=== PATIENT | female | born 1940 | race Caucasian/White ===

== ENCOUNTER 2017-04-07 21:00 | Observation (INO) | payer MEDICARE, OTHER ==
[2017-04-07 21:39] LABS: #Basophils 0.1 thou/uL (0.0-0.2); #Eosinphils 0.2 thou/uL (0.0-0.7); #Lymphocytes 2.2 thou/uL (1.20-3.40); #Monocytes 0.6 thou/uL (0.11-0.59); #Neutrophils 5.9 thou/uL (1.40-6.50); %Basophils 1.1 % (0.0-1.0); %Eosinophils 2.3 % (0.0-10.0); %Lymphocytes 24.3 % (21.0-51.0); %Monocytes 6.6 % (0.0-10.0); %Neutrophils 65.7 % (42.0-75.0); Hemoglobin 14.8 g/dL (12.0-16.0); Mean Corpuscular HGB CONC 33.3 g/dL (32.0-36.0); Mean Corpuscular Volume 96.1 fl (81.0-99.0); Mean Platelet Volume 6.9 fL (7.4-10.4); Platelet Count 278 thou/uL (130-400); Red Blood Cell (RBC) Count 4.62 mill/uL (4.20-5.40)
[2017-04-07 21:45] LABS: PTT 31.6 SEC (22.9-36.1); Prothrombin Time 13.3 SEC (12.0-14.7)
[2017-04-07] MEDS ORDERED: Nitroglycerin 2% Ointment 1 INCH/1 GM Packet ONE (21:48)
--- NOTE | 2017-04-07 21:52 | RAD ---
PORTABLE CHEST: 04/07/17 COMPARISON: 01/15/14 study HISTORY: Chest pain. Heart size is within normal limits. Postop sternotomy changes in a pacemaker are present. The lungs a re clear of infiltrates. IMPRESSION: No active intrathoracic disease. POS: [facility]
[2017-04-07 21:59] LABS: ALT (SGPT) 20 U/L (8-55); AST (SGOT) 24 U/L (5-34); Albumin 4.4 g/dL (3.4-4.8); Alkaline Phosphatase 44 U/L (40-150); Anion Gap 14 mmol/L (10-20); BUN (Urea Nitrogen) 26 mg/dL (9.8-20.1); Bilirubin, Total 0.4 mg/dL (0.2-1.2); CK (CPK) 97 U/L (29-168); Calc. Creatinine Clearance 0 mL/min (70-130); Carbon Dioxide 27 mmol/L (23-31); Chloride 102 mmol/L (98-107); Estimated GFR-MDRD 37; Globulin 3.9 g/dL (2.4-3.5); Glucose 108 mg/dL (83-110); Lipase 70 U/L (8-78); Protein, Total 8.3 g/dL (6.0-8.3); Sodium 139 mmol/L (136-145)
[2017-04-07 22:04] LABS: CKMB 1.9 ng/mL (0-6.6)
[2017-04-07] MEDS ORDERED: cloNIDine 0.1 MG TAB ONE (22:33)
[2017-04-08] MEDS ORDERED: Ondansetron ODT 4 MG TAB SL PRN (00:17)
[2017-04-08] MEDS ORDERED: Ondansetron HCl/PF 4 MG/2 ML Vial IVP PRN ×2 (00:17→01:10)
[2017-04-08] MEDS ORDERED: cloNIDine 0.2 MG TAB PO PRN (00:17)
[2017-04-08] MEDS ORDERED: Sodium Chloride 0.9% 1,000 ML IV SCH (00:17)
[2017-04-08] MEDS ORDERED: cloNIDine 0.1 MG TAB PO PRN ×2 (01:09→01:43)
[2017-04-08] MEDS ORDERED: ALPRAZolam 0.25 MG TAB PO PRN (01:09)
[2017-04-08] MEDS ORDERED: Loratadine 10 MG TAB PO PRN (01:10)
[2017-04-08] MEDS ORDERED: Bisacodyl 5 MG TAB PO PRN (01:10)
[2017-04-08] MEDS ORDERED: traMADol HCl 50 MG TAB PO PRN (01:10)
[2017-04-08] MEDS ORDERED: HYDROcodone/Acetaminophen 5/325 mg Tablet PO PRN (01:10)
[2017-04-08] MEDS ORDERED: Acetaminophen 325 MG TAB PO PRN ×2 (01:10)
[2017-04-08] MEDS ORDERED: Benzonatate 100 MG CAP PO PRN (01:10)
[2017-04-08] MEDS ORDERED: Nitroglycerin 0.4 MG TAB (25 Tab Bottle) SL PRN (01:10)
[2017-04-08] MEDS ORDERED: Calcium Carbonate 500 MG ChewTAB PO PRN (01:10)
[2017-04-08] MEDS ORDERED: Senokot 8.6 MG TAB PO PRN (01:10)
[2017-04-08] MEDS ORDERED: Mag-Al 1200 mg/1200 mg/30 ML UDCUP PO PRN (01:10)
[2017-04-08 01:57] VITALS: BMI 26.2
[2017-04-08 02:01] LABS: Troponin I 0.052 ng/mL (< 0.028)
--- NOTE | 2017-04-08 04:56 | HP ---
CHIEF COMPLAINT: Chest pain. HISTORY OF PRESENT ILLNESS: Ms. Lovell is a 76-year-old female with past medical history o f coronary artery disease status post 3-vessel CABG in 2011 and stent placement in 2013 as well as hi story of dyslipidemia and hypertension who presented to the emergency room with the above-mentioned c francescolaint. History is mainly obtained by the patient herself, though she is rather sleepy as this is 3:30 in the morning and the history is supplemented by chart review. She was last admitted [facility]/2015 at which time she underwent a cardiac stenting by Dr. Alegre. She reports she st ill follows up with Dr. Alegre as an outpatient on a regular basis and is compliant with her medica tions. She presented to the ER today with complaints of 2 days of intermittent sharp chest pain around her b ypass incision. It was associated with shortness of breath. It was 6/10 in intensity and she could not recall any exacerbating or relieving factors. She otherwise denies any recent illnesses. She de nies any excessive swelling of the legs. Upon presentation to the emergency room, she was hemodynamically stable. Her cardiac enzymes and12-l ead EKG is unremarkable. Given the significant history of coronary artery disease. She is now being admitted for further evaluation and ACS rule out. Her blood pressure was quite high upon presentati on; however. It was recorded as 226/106 with repeat blood pressure 171/65. She has received 10 mg o f is diltiazem as well as multiple doses of clonidine in the emergency room as well along with aspiri n. PAST MEDICAL HISTORY: 1. Coronary artery disease status post CABG and stenting. 2. Hypertension. 3. Dyslipidemia. 4. History of pacemaker placement. 5. Asthma. 6. Remote history of tobacco abuse. PAST SURGICAL HISTORY: 1. CABG in 2011. 2. Left carotid endarterectomy in 2011. 3. Cardiac catheterization in 12/2013 with stent placement. 4. Cardiac catheterization in 01/2015. 5. Stent placement in the proximal LAD. 6. Pacemaker placement. SOCIAL HISTORY: She has quit smoking, but has fagged more than 20 years, but quit smoking about 40 y ears ago. No alcohol or drug abuse. ALLERGIES: Include, 1. CEFTIN. 2. DEPO-MEDROL. 3. FLOMAX. 4. LIPITOR. 5. MUCINEX. 6. HYDRALAZINE. 7. STATIN INTOLERANCE. 8. DOXEPIN. 9. ZETIA. 10. AMLODIPINE. 11. HYDRALAZINE. 12. PREGABALIN. 13. SERTRALINE. HOME MEDICATIONS: As follows albuterol inhaler as needed, Xanax 0.25 mg p.o. t.i.d. p.r.n., Coreg 9. 375 mg p.o. b.i.d., Lasix 20 mg daily, Catapres 0.1 mg as needed, Plavix 75 mg daily, aspirin 325 mg daily, fish oil daily, multivitamin daily, vitamin D3 daily. FAMILY HISTORY: Significant for coronary artery disease in her brother who positive by the age of 49 . Father also has had CA by the age of 59 and a sister with coronary artery disease. REVIEW OF SYSTEMS: It is was negative except for those mentioned in the history and physical. Constitutional: Weight loss or gain, ability to conduct usual activities. Skin: Rash, itching. Eyes: Double vision, pain. ENT/Mouth: Nose bleeding, neck stiffness, pain, tenderness. Cardiovascular: Palpitations, dyspnea on exertion, orthopnea. Respiratory: Shortness of breath, wheezing, cough, hemoptysis, fever or night sweats. Gastrointestinal: Poor appetite, abdominal pain, heartburn, nausea, vomiting, constipation, or diarr hea. Genitourinary: Urgency, frequency, dysuria, nocturia. Musculoskeletal: Pain, swelling. Neurologic/Psychiatric: Anxiety, depression. Allergy/Immunologic: Skin rash, bleeding tendency. LABORATORY DATA: CBC is unremarkable. PT, PTT, INR are normal. Serum chemistries show BUN of 26, c reatinine 1.39, troponin 0.010 with repeat troponin of 0.052, BNP is normal. CK-MB and creatinine ki nase are normal. Lipase is 70. Chest x-ray by my review has no evidence to suggestive pleural effus ion, edema or infiltrate. Twelve lead EKG shows normal sinus rhythm without any acute ST or T-wave c hanges by my review. PHYSICAL EXAMINATION: VITAL SIGNS: Most recent vital signs include temperature 97.7, pulse of 60, respirations 18, saturat ing 96% on room air, blood pressure 119/57. GENERAL: No acute distress, awake, alert, and oriented x3. HEENT: Mucous membrane is moist and pink. No oropharyngeal exudate or erythema. Head is normocepha lic, atraumatic. Pupils are equal, reactive to light and accommodation. Extraocular movement are in tact. NECK: Supple without any lymphadenopathy, JVD or bruit. CHEST: Clear to auscultation without any wheezing, rales or rhonchi. Rhythm is regular without any murmur, rubs or gallops. ABDOMEN: Soft, nontender, nondistended, positive bowel sounds. EXTREMITIES: Free of any cyanosis, clubbing, or edema. NEUROLOGIC: Nonfocal. SKIN: Free of any rashes or bruises. Feels warm and dry to touch. PSYCHIATRIC: Normal affect. IMPRESSION AND PLAN: 1. Chest pain, likely noncardiac and related to uncontrolled hypertension. The patient has mild tro ponin elevation likely secondary to hypertensive urgency as well. However, given her extensive cardi ac history. She will be admitted to the hospital and we will order nuclear medicine stress test as w ell as check lipid profile and consult Cardiology in the morning. Continue with her home medication of aspirin, Plavix, and beta courtney at this time. The patient has RAMU inhibitor allergy listed. Th e patient has statin allergy listed. Continue with fish oil supplementation as well. 2. Hypertensive urgency. We will restart her home medications. Her blood pressure has been better controlled and we will be monitored closely on telemetry unit as well. 3. History of dyslipidemia. The patient has statin allergy. She has been tried in the past with Li valo, but for some reason she is not taking it anymore. Continue with oil supplementation for now. 4. Hypertension. Resume home medications as stated above. 5. History of coronary artery disease with coronary artery bypass grafting and stenting. Continue a spirin and Plavix as well as beta courtney for now. 6. Anxiety and depression. Continue Xanax as needed. 7. History of asthma, currently asymptomatic. Continue with Albuterol inhaler as needed. 8. Code status: FULL CODE. Discussed with the patient. DISPOSITION: Ms. Lovell is being admitted for chest pain workup and ACS rule out. Estimated length of stay at this time is less than 2 midnights. Further management will depend upon her clinical cour se and Cardiology recommendations.
[2017-04-08 06:07] LABS: #Basophils 0.1 thou/uL (0.0-0.2); #Eosinphils 0.2 thou/uL (0.0-0.7); #Lymphocytes 1.7 thou/uL (1.20-3.40); #Monocytes 0.6 thou/uL (0.11-0.59); #Neutrophils 4.4 thou/uL (1.40-6.50); %Basophils 0.7 % (0.0-1.0); %Eosinophils 2.3 % (0.0-10.0); %Lymphocytes 24.5 % (21.0-51.0); %Monocytes 9.3 % (0.0-10.0); %Neutrophils 63.3 % (42.0-75.0); Hemoglobin 12.7 g/dL (12.0-16.0); Mean Corpuscular HGB CONC 33.7 g/dL (32.0-36.0); Mean Corpuscular Hemoglobin 32.4 pg (27.0-31.0); Mean Corpuscular Volume 96.2 fl (81.0-99.0); Mean Platelet Volume 7.2 fL (7.4-10.4); Platelet Count 212 thou/uL (130-400); RBC Distribution Width 12.9 % (11.5-14.5); Red Blood Cell (RBC) Count 3.92 mill/uL (4.20-5.40); White Blood Cell (WBC) Count 6.9 thou/uL (4.8-10.8)
[2017-04-08 06:23] LABS: Anion Gap 12 mmol/L (10-20); BUN (Urea Nitrogen) 24 mg/dL (9.8-20.1); Calc. Creatinine Clearance 42 mL/min (70-130); Calcium 9.4 mg/dL (7.8-10.44); Carbon Dioxide 26 mmol/L (23-31); Chloride 106 mmol/L (98-107); Estimated GFR-MDRD 41; Glucose 112 mg/dL (83-110); Sodium 140 mmol/L (136-145); Troponin I 0.069 ng/mL (< 0.028)
[2017-04-08 06:28] LABS: Cardiac Risk 3.2 (Less than 4.5)
[2017-04-08] MEDS: Citrucel 500 MG TAB PO SCH (08:19)
[2017-04-08] MEDS: Fish Oil 1,000 MG CAP PO SCH ×2 (08:19→17:41)
[2017-04-08] MEDS: Carvedilol 3.125 MG TAB PO SCH ×2 (08:19→17:43)
[2017-04-08] MEDS: Calcium/Multivitamins W-Iron 1 TAB TAB PO SCH (08:19)
[2017-04-08] MEDS: Cholecalciferol (Vitamin D3) 400 UNITS TAB PO SCH (08:19)
[2017-04-08] MEDS: Furosemide 20 MG TAB PO SCH (08:20)
[2017-04-08] MEDS: Clopidogrel Bisulfate 75 MG TAB PO SCH (08:20)
[2017-04-08] MEDS: Saccharomyces boulardii 250 MG CAP PO SCH ×2 (08:20→20:29)
[2017-04-08] MEDS: Enoxaparin Sodium 40 MG/0.4 ML SYRINGE SC SCH (08:20)
[2017-04-08] MEDS ORDERED: Aspirin 325 MG TAB PO SCH (09:00)
[2017-04-08] MEDS ORDERED: Regadenoson 0.4 MG/5 ML SYRINGE ONE (16:29)
--- NOTE | 2017-04-08 16:38 | PDOC.EVN ---
Event Note - Event Note Event Note: Chart reviewed. Pt seen. Awaiting stress test and cardiology consult, will follow.
--- NOTE | 2017-04-08 20:43 | STRESS ---
Acquisition Time: 2017-04-08 13:35:38 Total Exercise Time: 00:01:00 Test Indications: CHEST PAIN Medications: Protocol: LEXISCAN Max HR: 077 BPM 53% of Pred: 145 BPM Max BP: 136/066 mmHG Max Work Load: 1.0 METS RESTING ECG: PACING AT 61 BPM WITH EARLY R-WAVE TRANSITION SYMPTOMS: DYSPNEA ON EXERTION NORMAL BP RESPONSE ECTOPY: NONE ECG STRESS: NO SIGNIFICANT CHANGES INTERPRETATION: NEGATIVE ECG/AWAIT NUCLEAR IMAGES FOR DEFINITIVE DIAGNOSIS Confirmed by JOCELIN DELGADO M.D. ([id number]) on 04/08/2017 8:43:04 PM Referred By: MD Clara REMY Confirmed By:JOCELIN DELGADO M.D.
[2017-04-08] MEDS ORDERED: Ubidecarenone 50 MG CAP PO SCH (21:00)
--- NOTE | 2017-04-09 05:14 | CON ---
DATE OF CONSULTATION: 04/08/2017 HISTORY OF PRESENT ILLNESS: Ms. Lovell is a 76-year-old white female that I initially evaluated in 09/2006. At that time, she was referred for chest discomfort occurring during the previous 6-8 months. This was a central chest stinging and the discomfort would last up to 1 hour. This was always associated with a feeling of her heart racing; however, she was uncertain of the rate. With palpitations, she also had some shortness of breath, but no nausea, vomiting or diaphoresis. The episodes would occur at rest, especially when she was under a lot of stress. The pain was not pleuritic in nature and with walking, the discomfort seemed to improve. Cholesterol is 221, triglycerides 260, HDL 35 and LDL 134. She was advised to stop smoking. With her multiple cardiac risk factors, she underwent 24-hour Holter monitor, which revealed a 3 beat run of supraventricular tachycardia at 200 per minute. However, she was asymptomatic during that episode. During episodes of "fast heart beating," she was in normal sinus rhythm. She underwent Cardiolite treadmill testing, which revealed no evidence of ischemia or fixed defect. Ejection fraction was 55% on echo with trace mitral regurgitation, trace tricuspid. There was trace tricuspid regurgitation, trace pulmonic insufficiency. It was thought that a beta-courtney might need to be used for hypertension if her palpitations became more troublesome. I did not see her again until 12/2009. She was having palpitations, so she went to the emergency room in [place] and was found to have 2:1 AV block. She had continued to smoke. Her heart rate was in the 40s with 2:1 Mobitz type II second-degree AV block. When she was seen in the hospital, initially she was asymptomatic. Echo revealed an ejection fraction of 55% to 60% with 2:1 AV block, mild mitral regurgitation, mild tricuspid regurgitation. She underwent placement of a dual chamber pacemaker and was started on metoprolol for elevated blood pressure and again she was urged to discontinue smoking. Four to five days after that, she was readmitted complaining of some chest discomfort that was pleuritic in nature, as well as worse with lying supine on bed. Echo did not reveal any pericardial effusion and it was felt that she may have had some pericardial irritation from the right atrial screw in lead. Cardiac enzymes were unremarkable. She was started on NSAID therapy with significant relief of her symptoms. She also had evidence of diaphragmatic stimulation from the atrial lead. She presented in 01/2010 with increased diaphragmatic stimulation and poor R-wave sensing and it was felt that the atrial lead need to be repositioned due to that. She underwent reposition of the atrial lead without incident. In 04/2011, she began to complain of central chest discomfort, worse when she was walking fast. This was not like the pleuritic chest pain that she had after pacemaker placement. The chest pressure was relieved with rest, but would occur several times per day. She continued to smoke. In 01/2010, she underwent Cardiolite testing, which revealed no evidence of ischemia and was probably normal. She continued to complain of the chest discomfort in 04/2010. In 08/2010, she did have exertional chest discomfort that would last 30 seconds and would occur 2-3 times per week. She continued to smoke. In 01/2011, she again was complaining of the exertional chest discomfort that would last approximately 5 minutes. She again underwent Lexiscan Cardiolite testing, which again revealed no evidence of ischemia. In 02/2011, she continued to complain of exertional chest discomfort that would last for 5 minutes. With continued complaints of exertional chest discomfort, but normal noninvasive studies, ultimately it was recommended that she undergo a cardiac catheterization, which was performed in 03/2011, this revealed moderate global hypokinesis with ejection fraction of 30 % to 35%, which was a worsening her ejection fraction from echos in the past. She had calcified proximal coronary arteries. There was an 80% proximal LAD, 90 % proximal circumflex, 20% first obtuse marginal, 50% mid RCA and 50% distal RCA. In retrospect, her Cardiolites were reviewed again and appeared normal. It was felt that she probably had balanced ischemia. This would cause the false negative Cardiolite. She underwent CABG x3 with BOYCE to LAD and vein graft to obtuse marginal and the distal right coronary artery. Operative findings include cardiomegaly and diffuse pericardial adhesions consistent with remote pericarditis. Coronary arteries was diffusely diseased. She was referred to cardiac rehab and had some confusion after surgery. Also, she underwent left carotid endarterectomy in 04/[address] Rodriguez. She continued to do well postoperatively, although she did not totally stop smoking. She used E- cigarettes that contain nicotine. In 04/2013, she was asymptomatic except for some exertional dyspnea. Her LDL had been under good control. In 12/2013, she began to have increasing chest pressure, this would essentially only occur with exertion while walking in the house. She developed chest pressure and mild shortness of breath. No nausea, vomiting or diaphoresis. She also complained of palpitations when she had that, although she did not have any significant arrhythmias seen on her pacemaker, these were the very similar symptoms what she complained of in 2006 and also again in 2010 , prior to bypass surgery. The longest episode lasted approximately 3 hours with continual discomfort. She then came to the hospital for further evaluation. Three sets of cardiac enzymes were unremarkable. Due to the history of false negative Cardiolite, it was felt that she should undergo catheterization, this revealed the obtuse marginal and right coronary artery grafts to be patent. The BOYCE to the LAD was thread-like and the proximal LAD had an 80% stenosis. She underwent placement of Resolute 3.0 x 22 mm stent, which was post-dilated with a 3.5 mm balloon. After placement of stent in the proximal LAD, she did not have any further exertional chest pressure or shortness of breath like she has been having prior to stent placement. She would walk up to 20 minutes at a very vigorous pace with no symptoms. She then awoke approximately 1 month later feeling her heart "racing." Blood pressure was 169 systolic, heart rate was in the 60s. Pacemaker was interrogated. She had no significant arrhythmias. She went to hospital in [place] and then was transferred here. It was felt that her palpitations were probably due to elevated blood pressure. Echo was unremarkable. She was then discharged. In 12/2014, she complained of palpitations and "stinging" in her chest, this was along the upper sternum. The pain was pleuritic with tenderness to the touch, which would last approximately 5 minutes. She also would get chest heaviness with walking over the last month, which resolved in 2-3 minutes with rest. She would get short of breath with this. With her exertional chest pressure, it was felt that she probably had restenosis of her proximal LAD stent. On 01/07/2015, underwent repeat cardiac catheterization. There was a 90 % proximal LAD lesion proximal to the previous stent. The BOYCE to the LAD continued to be thread like. The graft to the obtuse marginal one and the right coronary artery graft were patent. She underwent placement of a Resolute 2.5 x 14 mm stent in the proximal 90% LAD lesion. Since that time, she has been doing relatively well and only complaint of exertional dyspnea, although she is fairly inactive. She has not had exertional chest pressure since the stent was placed in 01/2015. She now presents complaining of a stinging pain along the lower part of her incision. The area is very tender to the touch. There is no pleuritic component to the pain. This is not like the exertional chest pressure that she had prior to stenting in 2013 and then redo stenting in 2014. PAST MEDICAL HISTORY: Hypertension, hypercholesterolemia, asthma and mild coronary artery disease. PAST SURGICAL HISTORY: CABG, left carotid endarterectomy, stent placement in the proximal LAD twice and pacemaker placement with repositioning of the atrial lead. MEDICATIONS: Albuterol 2 puffs q.4 hours p.r.n., albuterol nebs p.r.n., Xanax 0.25 t.i.d., aspirin 325 daily, carvedilol 6.25 one-half tablet b.i.d., Citrucel 500 daily, vitamin D3 400 daily, clonidine 0.1 p.r.n., furosemide 20 q.a.m., omega 3 fatty acids 1 capsule b.i.d., CoQ10 daily. She was on Livalo in the past, but currently is not taking that. She has since been on both Praluent and Repatha. ALLERGIES: STATINS cause muscle aches and STEROIDS. SOCIAL HISTORY: She smoked up to 1-1/2 packs per day. She use E-cigarettes that contain nicotine. She does not drink. FAMILY HISTORY: Brother underwent CABG. Other brother of myocardial infarction at age 48. Father of [place] at age 59. REVIEW OF SYSTEMS: Twelve-point review of systems otherwise unremarkable. PHYSICAL EXAMINATION: VITAL SIGNS: Blood pressure 116/57 and pulse 69. HEENT: PERRL. NECK: Supple. CHEST: Clear. CARDIAC: S1 and S2 are normal, without any S3 or S4. There is a 1/6 systolic murmur along the left sternal border. ABDOMEN: Normal bowel sounds, without tenderness, organomegaly or masses. EXTREMITIES: Revealed no clubbing, cyanosis or edema. NEUROLOGIC: Grossly intact. MUSCULOSKELETAL: Revealed palpable central part of the lower sternal incision that seems to reproduce her pain. LABORATORY AND IMAGING DATA: EKG reveals atrial pacing. Pacemaker was interrogated and continues to function well. Hemoglobin 12.7, hematocrit 37.7, white count 6900 and platelets 212,000. INR 1.0. Sodium 140, potassium 4.0, chloride 106, carbon dioxide 26, BUN 24 and creatinine 1.26. Troponin I 0.069, cholesterol 121, triglycerides 255, HDL 38 and LDL 32. IMPRESSION: 1. Atypical chest discomfort, probably musculoskeletal in nature. 2. Status post coronary artery bypass graft x3 with obtuse marginal and right coronary grafts being patent; however, thread like left internal mammary artery to the left anterior descending. She has undergone stenting of the proximal left anterior descending due to this in 12/2013 and 01/2015. 3. Status post dual-chamber pacemaker placement. 4. Diastolic dysfunction. 5. Hypercholesterolemia with intolerance to statins, but good control at the present time with injectable medication. 6. Hypertension. 7. Positive family history. 8. Former smoker. 9. Osteoarthritis. 10. Hypothyroidism. PLAN: Ms. Lovell's chest discomfort does not appear to be cardiac in nature and historically sounds more chest wall. She has undergone half of the Cardiolite scan and this will be completed. If this is negative, then no further cardiac evaluation is warranted. ALONDRA
[2017-04-09] MEDS: Cholecalciferol (Vitamin D3) 400 UNITS TAB PO SCH (08:06)
[2017-04-09] MEDS: Furosemide 20 MG TAB PO SCH (08:06)
[2017-04-09] MEDS: Clopidogrel Bisulfate 75 MG TAB PO SCH (08:07)
[2017-04-09] MEDS: Saccharomyces boulardii 250 MG CAP PO SCH (08:07)
[2017-04-09] MEDS: Fish Oil 1,000 MG CAP PO SCH (08:07)
[2017-04-09] MEDS: Enoxaparin Sodium 40 MG/0.4 ML SYRINGE SC SCH (08:08)
[2017-04-09] MEDS: Carvedilol 3.125 MG TAB PO SCH (08:11)
[2017-04-09] MEDS: Calcium/Multivitamins W-Iron 1 TAB TAB PO SCH (08:15)
[2017-04-09] MEDS: Citrucel 500 MG TAB PO SCH (08:15)
[2017-04-09 12:46] VITALS: BP 155/72; TEMP 97.8
--- NOTE | 2017-04-09 14:58 | NM ---
NUCLEAR MEDICINE CARDIAC STRESS TEST WITH EJECTION FRACTION: HISTORY: Chest pain. Coronary artery disease. Bypass, stent placement, COPD, dyslipidemia, history of mead ry artery disease. TECHNIQUE: Stress and rest is performed after the intravenous administration of 33 and 29 mCi Technetium 99, ses tamibi, respectively. FINDINGS: There is normal left ventricular radiotracer uptake. No evidence of scar or ischemia. Normal wall m otion. Ejection fraction is calculated at 69%. IMPRESSION: No evidence of scar or ischemia. Normal ejection fraction. POS: [facility]
--- NOTE | 2017-04-09 19:47 | DIS ---
DATE OF ADMISSION: 04/08/2017 DATE OF DISCHARGE: 04/09/2017 PRIMARY CARE PHYSICIAN: Junior Ontiveros M.D. DISCHARGE DIAGNOSIS: Chest pain. CONDITION OF PATIENT AT THE TIME OF DISCHARGE: Stable. I assessed Ms. Lovell on the day of discharge. She denies any chest pain or shortness of breath. Vi fiona signs are stable. S1 and S2 are heard, regular. Lungs are clear to auscultation bilaterally. DISCHARGE MEDICATIONS: No changes were made to her preadmission home medications as dictated on hist ory and physical note from 04/08/2017. HOSPITAL COURSE: Ms. Lovell is a pleasant 76-year-old lady, who was admitted to [facility] on 04/08/2017 for chest pain. She was seen by Cardiology Service. She had a pulmonary embolism ruled out with a negative D-dimer. She also had a nuclear stress test, which was normal. Her chest pain resolved. Her left ventricular ejection fraction was calculated at 69% on the nuclear stress test. She is being discharged home in a stable condition and advised to follow up with her [facility] physician in 3 to 5 days. CONSULTATIONS DURING THIS HOSPITALIZATION: Cardiology, Dr. Alegre. Many thanks for allowing me to participate in your patient's care. Please feel free to contact me wi th any questions or concerns. DISCHARGE DESTINATION: Home.
--- NOTE | 2017-04-10 12:10 | EKG ---
Test Reason : Blood Pressure : / mmHG Vent. Rate : 072 BPM Atrial Rate : 072 BPM P-R Int : 160 ms QRS Dur : 088 ms QT Int : 390 ms P-R-T Axes : 072 050 031 degrees QTc Int : 427 ms Normal sinus rhythm Normal ECG Confirmed by ALFRED MITCHELL, APRIL ([id number]), visual effects editor EZRA CASH ([id number]) on 04/10/2017 12:10:21 PM Referred By: Confirmed By:APRIL SIMON MD
== END 2017-04-09 16:54 | disposition home or self-care (01) ==
LOC: ERS 21:00 → 2SW 22:15
PROVIDERS: ADMIT Internal Medicine; ATTEND Internal Medicine
DX: R07.9 Chest pain, unspecified (principal); I25.10 Atherosclerotic heart disease of native coronary artery without angina pectoris; I16.0 Hypertensive urgency; I10 Essential (primary) hypertension; E78.5 Hyperlipidemia, unspecified; J45.909 Unspecified asthma, uncomplicated; E78.00 Pure hypercholesterolemia, unspecified; M19.90 Unspecified osteoarthritis, unspecified site; E03.9 Hypothyroidism, unspecified; Z87.891 Personal history of nicotine dependence; Z79.82 Long term (current) use of aspirin; Z79.02 Long term (current) use of antithrombotics/antiplatelets; Z79.899 Other long term (current) drug therapy; Z88.1 Allergy status to other antibiotic agents; Z88.8 Allergy status to other drugs, medicaments and biological substances; Z95.5 Presence of coronary angioplasty implant and graft; Z95.1 Presence of aortocoronary bypass graft; Z95.0 Presence of cardiac pacemaker; Z98.890 Other specified postprocedural states
CPT/HCPCS: 71045; 78452; 80048; 80053; 80061; 82550; 82553; 83690; 83880; 84484 ×3; 85025 ×2; 85379; 85610; 85730; 93005; 93017; 94760 ×2; 97139 ×2; 99285; A9500; G0378; 36415; 96360; J1650; J2785

== ENCOUNTER 2019-03-07 11:33 | Emergency (ER) | payer MEDICARE, OTHER ==
--- NOTE | 2019-03-07 13:05 | RAD ---
EXAM: 3 views of the right great toe HISTORY: Toe pain after kicking wood chips 8 days ago COMPARISON: None FINDINGS: There is no evidence of acute fracture or dislocation. No soft tissue swelling is seen. No degenerative changes are present. No radiopaque foreign body is seen. IMPRESSION: No evidence of acute osseous abnormality.
== END 2019-03-07 14:24 | disposition home or self-care (01) ==
LOC: ERS 11:33
DX: S90.111A Contusion of right great toe without damage to nail, initial encounter (principal); E78.5 Hyperlipidemia, unspecified; I10 Essential (primary) hypertension; Z79.899 Other long term (current) drug therapy; W22.8XXA Striking against or struck by other objects, initial encounter

== ENCOUNTER 2021-01-28 22:44 | Inpatient (IN) | payer MEDICARE, OTHER ==
[2021-01-28 23:30] LABS: #Basophils 0.1 thou/uL (0.0-0.2); #Eosinphils 0.1 thou/uL (0.0-0.7); #Lymphocytes 1.9 thou/uL (1.20-3.40); #Monocytes 0.6 thou/uL (0.11-0.59); #Neutrophils 9.3 thou/uL (1.40-6.50); %Basophils 0.6 % (0.0-1.0); %Eosinophils 1.1 % (0.0-10.0); %Lymphocytes 15.5 % (21.0-51.0); %Neutrophils 77.8 % (42.0-75.0); Hemoglobin 12.7 g/dL (12.0-16.0); Mean Corpuscular HGB CONC 31.9 g/dL (32.0-36.0); Mean Corpuscular Hemoglobin 30.3 pg (27.0-31.0); Mean Corpuscular Volume 94.7 fL (78.0-98.0); Mean Platelet Volume 7.3 fL (7.4-10.4); Platelet Count 291 thou/uL (130-400); RBC Distribution Width 13.4 % (11.5-14.5)
[2021-01-28] MEDS ORDERED: Aspirin Chewable 81 MG TAB ONE (23:34)
[2021-01-28 23:37] LABS: ALT (SGPT) 17 U/L (8-55); AST (SGOT) 23 U/L (5-34); Albumin 4.2 g/dL (3.4-4.8); Alkaline Phosphatase 43 U/L (40-110); Anion Gap 15 mmol/L (10-20); BUN (Urea Nitrogen) 25 mg/dL (9.8-20.1); Bilirubin, Total 0.3 mg/dL (0.2-1.2); Calc. Creatinine Clearance 0 mL/min (70-130); Calcium 9.7 mg/dL (7.8-10.44); Carbon Dioxide 28 mmol/L (23-31); Chloride 103 mmol/L (98-107); Globulin 3.8 g/dL (2.4-3.5); Glucose 154 mg/dL (83-110); Sodium 142 mmol/L (136-145)
[2021-01-29] MEDS ORDERED: cloNIDine 0.1 MG TAB ONE (00:25)
[2021-01-29] MEDS ORDERED: Nitroglycerin 0.4 MG TAB (25 Tab Bottle) SL PRN (01:10)
[2021-01-29] MEDS ORDERED: Acetaminophen 325 MG TAB PO PRN (01:22)
[2021-01-29] MEDS ORDERED: Ondansetron PF 4 MG/2 ML Vial IVP PRN (01:22)
[2021-01-29] MEDS ORDERED: Benzonatate 100 MG CAP PO PRN (01:26)
[2021-01-29] MEDS ORDERED: Albuterol Sulfate 2.5 mg/3 ml Neb NEB PRN (01:27)
[2021-01-29] MEDS ORDERED: cloNIDine 0.1 MG TAB PO SCH (02:16)
[2021-01-29] MEDS ORDERED: cloNIDine 0.1 MG TAB PO PRN (02:17)
[2021-01-29 02:23] VITALS: BMI 24.2
[2021-01-29 02:23] LABS: #Eosinphils 0.1 thou/uL (0.0-0.7); #Lymphocytes 2.1 thou/uL (1.20-3.40); #Monocytes 0.9 thou/uL (0.11-0.59); #Neutrophils 8.8 thou/uL (1.40-6.50); %Basophils 0.4 % (0.0-1.0); %Eosinophils 1.1 % (0.0-10.0); %Lymphocytes 17.2 % (21.0-51.0); %Monocytes 7.2 % (0.0-10.0); %Neutrophils 74.1 % (42.0-75.0); Mean Corpuscular HGB CONC 33.6 g/dL (32.0-36.0); Mean Corpuscular Volume 95.2 fL (78.0-98.0); Mean Platelet Volume 7.1 fL (7.4-10.4); Platelet Count 248 thou/uL (130-400); RBC Distribution Width 13.3 % (11.5-14.5); Red Blood Cell (RBC) Count 3.75 mill/uL (4.20-5.40); White Blood Cell (WBC) Count 11.9 thou/uL (4.8-10.8)
[2021-01-29 02:30] LABS: SARS-CoV-2 NAA Rapid Test Not Detected (NotDetected)
[2021-01-29 02:48] LABS: Troponin I 0.025 ng/mL (< 0.028)
[2021-01-29] MEDS ORDERED: ALPRAZolam 0.25 MG TAB PO PRN (02:54)
[2021-01-29 02:55] LABS: Anion Gap 13 mmol/L (10-20); BUN (Urea Nitrogen) 23 mg/dL (9.8-20.1); Calc. Creatinine Clearance 40 mL/min (70-130); Calcium 9.6 mg/dL (7.8-10.44); Carbon Dioxide 26 mmol/L (23-31); Chloride 105 mmol/L (98-107); Glucose 106 mg/dL (83-110); Potassium 3.8 mmol/L (3.5-5.1); Sodium 140 mmol/L (136-145)
[2021-01-29] MEDS: Cephalexin 250 MG CAP PO SCH ×3 (03:21→17:21)
[2021-01-29 05:29] LABS: Troponin I 0.024 ng/mL (< 0.028)
[2021-01-29] MEDS ORDERED: Mometasone 200 MCG/Formoterol 5 MCG 120 PUFF INHALER INH SCH (07:00)
[2021-01-29] MEDS ORDERED: Aspirin 325 MG TAB PO SCH (08:00)
[2021-01-29] MEDS ORDERED: Furosemide 20 MG TAB PO SCH (09:00)
[2021-01-29] MEDS ORDERED: Fluticasone Propionate Nasal Spray 16 gm Bottle NASAL SCH (09:00)
[2021-01-29] MEDS ORDERED: Cholecalciferol (Vitamin D3) 400 UNITS TAB PO SCH (09:00)
[2021-01-29] MEDS ORDERED: Ascorbic Acid 500 mg Chewable Tablet PO SCH (09:00)
[2021-01-29] MEDS ORDERED: Losartan 25 MG TAB PO SCH (09:00)
[2021-01-29] MEDS ORDERED: Multivitamin W/ Minerals 1 TAB PO SCH (09:00)
[2021-01-29] MEDS ORDERED: Zinc Sulfate 220 MG CAP PO SCH (09:00)
[2021-01-29] MEDS: Fish Oil 1,000 MG CAP PO SCH ×2 (10:21→17:21)
[2021-01-29] MEDS: Allopurinol 100 MG TAB PO SCH ×2 (10:21→19:42)
[2021-01-29] MEDS: Carvedilol 3.125 MG TAB PO SCH ×2 (10:33→17:21)
[2021-01-29 11:59] LABS: Bacteria/HPF None Seen HPF (None Seen); Bilirubin Negative (Negative); Blood, Urine Negative (Negative); Clarity Clear (Clear); Glucose, Urine (Dipstick) Normal (Negative); Ketone, Urine Negative (Negative); Leukocyte 75 Leu/uL (Negative); Nitrite Negative (Negative); Protein, Urine (Dipstick) Negative (Neg-Trace); Specific Gravity, Urine 1.023 (1.002-1.036); Urobilinogen Normal mg/dL (Less than 2); pH, Urine 6.5 (5.0-9.0)
[2021-01-29 15:51] VITALS: TEMP 98.3
[2021-01-29] MEDS ORDERED: Doxycycline 100 MG CAP PO SCH (16:15)
[2021-01-29] MEDS ORDERED: predniSONE 20 MG TAB PO SCH (17:15)
[2021-01-29 18:32] VITALS: BP 172/72
[2021-01-30] MEDS ORDERED: FLU VACC QS2021-22(65YR UP)/PF 240 MCG/0.7 ML SYRINGE IM ONE (09:00)
[2021-01-30] MEDS ORDERED: Doxycycline 100 MG CAP PO SCH (09:00)
[2021-02-11] MEDS ORDERED: EVOLOCUMAB 140 MG/ML SC SCH (09:00)
== END 2021-01-29 20:00 | disposition home or self-care (01) | DRG 202 ==
LOC: ERS 22:44 → 2NO 01-29 00:32
PROVIDERS: ADMIT Student in an Organized Health Care Education/Training Program; ATTEND Student in an Organized Health Care Education/Training Program
DX: J20.9 Acute bronchitis, unspecified (principal); Z20.822 Contact with and (suspected) exposure to COVID-19; J44.1 Chronic obstructive pulmonary disease with (acute) exacerbation; J44.0 Chronic obstructive pulmonary disease with (acute) lower respiratory infection; I42.9 Cardiomyopathy, unspecified; I25.10 Atherosclerotic heart disease of native coronary artery without angina pectoris; N18.30 Chronic kidney disease, stage 3 unspecified; E78.5 Hyperlipidemia, unspecified; F17.210 Nicotine dependence, cigarettes, uncomplicated; I12.9 Hypertensive chronic kidney disease with stage 1 through stage 4 chronic kidney disease, or unspecified chronic kidney disease; I16.0 Hypertensive urgency; R73.9 Hyperglycemia, unspecified; F17.290 Nicotine dependence, other tobacco product, uncomplicated; Z95.1 Presence of aortocoronary bypass graft; Z95.5 Presence of coronary angioplasty implant and graft; Z88.6 Allergy status to analgesic agent; Z88.8 Allergy status to other drugs, medicaments and biological substances; Z79.899 Other long term (current) drug therapy; Z79.82 Long term (current) use of aspirin; Z79.51 Long term (current) use of inhaled steroids; Z95.0 Presence of cardiac pacemaker; Z82.49 Family history of ischemic heart disease and other diseases of the circulatory system; Z71.6 Tobacco abuse counseling
CPT/HCPCS: 36415; 71045; 80048; 80053; 81001; 83880; 84484; 85025; 93005; 94640; 94760; J7512; J7620; U0002

== ENCOUNTER 2021-10-08 13:20 | Observation (INO) | payer MEDICARE, OTHER ==
[2021-10-08 15:08] LABS: #Lymphocytes 1.2 thou/uL (1.20-3.40); #Monocytes 0.6 thou/uL (0.11-0.59); #Neutrophils 3.1 thou/uL (1.40-6.50); %Basophils 0.3 % (0.0-1.0); %Eosinophils 0.6 % (0.0-10.0); %Lymphocytes 23.9 % (21.0-51.0); %Monocytes 11.9 % (0.0-10.0); %Neutrophils 63.3 % (42.0-75.0); Hemoglobin 13.6 g/dL (12.0-16.0); Mean Corpuscular HGB CONC 32.9 g/dL (32.0-36.0); Mean Corpuscular Hemoglobin 31.1 pg (27.0-31.0); Mean Corpuscular Volume 94.6 fL (78.0-98.0); Mean Platelet Volume 10.3 fL (7.4-10.4); Platelet Count 151 thou/uL (130-400); RBC Distribution Width 13.8 % (11.5-14.5); Red Blood Cell (RBC) Count 4.37 mill/uL (4.20-5.40); White Blood Cell (WBC) Count 4.8 thou/uL (4.8-10.8)
[2021-10-08 16:23] LABS: Bilirubin Negative (Negative); Blood, Urine Negative (Negative); Clarity Clear (Clear); Glucose, Urine (Dipstick) Normal (Negative); Ketone, Urine Negative (Negative); Leukocyte Negative Leu/uL (Negative); Nitrite Negative (Negative); Protein, Urine (Dipstick) Negative (Neg-Trace); Specific Gravity, Urine 1.011 (1.002-1.036); Urobilinogen Normal mg/dL (Less than 2)
[2021-10-08 17:08] LABS: ALT (SGPT) 22 U/L (8-55); AST (SGOT) 30 U/L (5-34); Albumin 3.8 g/dL (3.4-4.8); Alkaline Phosphatase 35 U/L (40-110); Anion Gap 15 mmol/L (10-20); BUN (Urea Nitrogen) 24 mg/dL (9.8-20.1); Bilirubin, Total 0.3 mg/dL (0.2-1.2); Calc. Creatinine Clearance 0 mL/min (70-130); Calcium 9.1 mg/dL (7.8-10.44); Carbon Dioxide 22 mmol/L (23-31); Chloride 104 mmol/L (98-107); Estimated GFR 46; Globulin 3.5 g/dL (2.4-3.5); Glucose 98 mg/dL (83-110); Potassium 3.9 mmol/L (3.5-5.1); Protein, Total 7.3 g/dL (5.8-8.1); Sodium 137 mmol/L (136-145)
[2021-10-08] MEDS ORDERED: Aspirin 325 MG TAB ONE (17:48)
[2021-10-08] MEDS ORDERED: Nitroglycerin 2% Ointment 1 INCH/1 GM Packet ONE (17:48)
[2021-10-08] MEDS ORDERED: Ondansetron PF 4 MG/2 ML Vial IVP PRN (18:04)
[2021-10-08] MEDS ORDERED: Loperamide HCl 2 MG CAP PO PRN ×2 (18:04)
[2021-10-08] MEDS ORDERED: HYDROcodone/Acetaminophen 5/325 mg Tablet PO PRN (18:04)
[2021-10-08] MEDS ORDERED: Acetaminophen 325 MG TAB PO PRN (18:04)
[2021-10-08] MEDS ORDERED: Ondansetron ODT 4 MG TAB PO PRN (18:04)
[2021-10-08] MEDS ORDERED: Labetalol HCl 100 MG/20 ML VIAL SLOW IVP PRN (18:04)
[2021-10-08] MEDS ORDERED: ALPRAZolam 0.25 MG TAB PO PRN (18:25)
[2021-10-08 18:30] LABS: Hemoglobin A1c 5.9 % (4.0-6.0)
[2021-10-08] MEDS ORDERED: Albuterol Sulfate 2.5 mg/3 ml Neb NEB PRN (19:00)
[2021-10-08 19:06] LABS: SARS-CoV-2 NAA Rapid Test DETECTED (NotDetected)
[2021-10-08] MEDS ORDERED: Benzonatate 100 MG CAP PO PRN (20:12)
[2021-10-08] MEDS ORDERED: Albuterol 200 PUFF (6.7GM INHALER) INH PRN (20:12)
[2021-10-08 20:27] LABS: Amphetamine Not Detected (NotDetected); Barbiturates Screen Not Detected (NotDetected); Benzodiazepine Screen Not Detected (NotDetected); Cocaine Metabolite Screen Not Detected (NotDetected); Methadone Not Detected (NotDetected); Methamphetamine Not Detected (NotDetected); Opiate Screen Not Detected (NotDetected); Oxycodone Screen Not Detected (NotDetected); Phencyclidine (PCP) Not Detected (NotDetected); THC/Cannabinoid Screen Not Detected (NotDetected); Tricyclic Screen Not Detected (NotDetected)
[2021-10-08 20:36] LABS: Troponin I Less than 0.010 ng/mL (< 0.028)
[2021-10-08 21:29] LABS: Troponin I 0.014 ng/mL (< 0.028)
[2021-10-08 21:53] VITALS: BMI 24.5
[2021-10-08] MEDS: Sodium Chloride 0.9% 1,000 ML IV SCH (22:07)
[2021-10-08] MEDS ORDERED: Allopurinol 100 MG TAB PO SCH (22:45)
[2021-10-08] MEDS ORDERED: Carvedilol 6.25 MG TAB PO SCH (22:45)
[2021-10-09 05:00] LABS: #Eosinphils 0.1 thou/uL (0.0-0.7); #Lymphocytes 1.4 thou/uL (1.20-3.40); #Monocytes 0.5 thou/uL (0.11-0.59); #Neutrophils 2.5 thou/uL (1.40-6.50); %Basophils 0.3 % (0.0-1.0); %Eosinophils 1.2 % (0.0-10.0); %Lymphocytes 30.3 % (21.0-51.0); %Monocytes 11.5 % (0.0-10.0); %Neutrophils 56.7 % (42.0-75.0); Hemoglobin 11.7 g/dL (12.0-16.0); Mean Corpuscular Hemoglobin 31.5 pg (27.0-31.0); Mean Corpuscular Volume 95.5 fL (78.0-98.0); Mean Platelet Volume 8.7 fL (7.4-10.4); Platelet Count 131 thou/uL (130-400); RBC Distribution Width 13.4 % (11.5-14.5); Red Blood Cell (RBC) Count 3.71 mill/uL (4.20-5.40); White Blood Cell (WBC) Count 4.5 thou/uL (4.8-10.8)
[2021-10-09 05:21] LABS: ALT (SGPT) 18 U/L (8-55); AST (SGOT) 25 U/L (5-34); Albumin 3.3 g/dL (3.4-4.8); Alkaline Phosphatase 29 U/L (40-110); Anion Gap 14 mmol/L (10-20); BUN (Urea Nitrogen) 21 mg/dL (9.8-20.1); Bilirubin, Total Less than 0.2 mg/dL (0.2-1.2); Calc. Creatinine Clearance 45 mL/min (70-130); Calcium 8.5 mg/dL (7.8-10.44); Carbon Dioxide 21 mmol/L (23-31); Cardiac Risk 2.6 (Less than 4.5); Chloride 108 mmol/L (98-107); Cholesterol 77 mg/dl (< 200 Desired); Estimated GFR 55; Globulin 2.9 g/dL (2.4-3.5); Glucose 100 mg/dL (83-110); HDL Cholesterol 30 mg/dL (>60 Neg Risk); LDL Cholesterol, Calculated 12 mg/dL; Potassium 3.6 mmol/L (3.5-5.1); Protein, Total 6.2 g/dL (5.8-8.1); Sodium 139 mmol/L (136-145); Triglycerides 173 mg/dL (Less than 150)
[2021-10-09] MEDS ORDERED: Albuterol 200 PUFF (6.7GM INHALER) INH PRN (05:59)
[2021-10-09] MEDS: Mometasone 200 MCG/Formoterol 5 MCG 120 PUFF INHALER INH SCH ×2 (06:23→17:23)
[2021-10-09] MEDS ORDERED: Aspirin 325 MG TAB PO SCH (09:00)
[2021-10-09] MEDS ORDERED: Fluticasone Propionate Nasal Spray 16 gm Bottle NASAL SCH (09:00)
[2021-10-09] MEDS ORDERED: Losartan 25 MG TAB PO SCH ×2 (09:00→15:45)
[2021-10-09] MEDS ORDERED: Non-Formulary Item 1 EACH (Budesonide/Formoterol Fumarate [Budesonide-Formoterol 160-4.5] IH SCH (09:00)
[2021-10-09] MEDS ORDERED: Multivitamin W/ Minerals 1 TAB PO SCH (09:00)
[2021-10-09] MEDS ORDERED: Allopurinol 100 MG TAB PO SCH (09:00)
[2021-10-09] MEDS ORDERED: Aspirin 81 mg Enteric Coated Tablet PO SCH (09:00)
[2021-10-09] MEDS ORDERED: Enoxaparin Sodium 30 MG/0.3 ML SYRINGE SC SCH (09:00)
[2021-10-09] MEDS ORDERED: (RENAL) NIRMATRELVIR 150 MG/RITONAVIR 100 MG TABLET PO SCH (09:00)
[2021-10-09] MEDS ORDERED: Cholecalciferol 1,000 UNITS (25 MCG) TAB PO SCH (09:00)
[2021-10-09] MEDS ORDERED: Icosapent Ethyl [Vascepa] 0.5 GM Capsule PO SCH (09:00)
[2021-10-09] MEDS: Carvedilol 6.25 MG TAB PO SCH ×2 (11:10→17:23)
[2021-10-09] MEDS: Fish Oil 1,000 MG CAP PO SCH ×2 (11:10→17:23)
[2021-10-09 12:00] VITALS: TEMP 97.4
[2021-10-09] MEDS: Sodium Chloride 0.9% 1,000 ML IV SCH (12:32)
[2021-10-09 17:24] VITALS: BP 179/79
[2021-10-10] MEDS ORDERED: Losartan 25 MG TAB PO SCH (09:00)
== END 2021-10-09 19:50 | disposition home or self-care (01) ==
LOC: ERS 13:20 → NEURO 17:34
PROVIDERS: ADMIT Family Medicine; ATTEND Family Medicine
DX: U07.1 COVID-19 (principal); R41.82 Altered mental status, unspecified; I12.9 Hypertensive chronic kidney disease with stage 1 through stage 4 chronic kidney disease, or unspecified chronic kidney disease; N18.9 Chronic kidney disease, unspecified; E78.5 Hyperlipidemia, unspecified; I25.10 Atherosclerotic heart disease of native coronary artery without angina pectoris; J44.9 Chronic obstructive pulmonary disease, unspecified; I08.3 Combined rheumatic disorders of mitral, aortic and tricuspid valves; Z87.891 Personal history of nicotine dependence; Z79.82 Long term (current) use of aspirin; Z79.899 Other long term (current) drug therapy; Z88.1 Allergy status to other antibiotic agents; Z88.8 Allergy status to other drugs, medicaments and biological substances; Z95.0 Presence of cardiac pacemaker; Z95.1 Presence of aortocoronary bypass graft; Z95.5 Presence of coronary angioplasty implant and graft
CPT/HCPCS: 70450; 70551; 71045; 80053; 80061; 80306; 80307; 81003; 82550; 82607; 83036; 84484 ×2; 85025; 93005; 93306; 93880; 97116; U0002; 36415; 84443; 96360; 96372; G0378; J1650; J7050

== ENCOUNTER 2021-10-19 19:51 | Observation (INO) | payer MEDICARE, OTHER ==
[2021-10-19 20:34] LABS: #Basophils 0.1 thou/uL (0.0-0.2); #Eosinphils 0.3 thou/uL (0.0-0.7); #Lymphocytes 1.9 thou/uL (1.20-3.40); #Monocytes 0.8 thou/uL (0.11-0.59); #Neutrophils 8.4 thou/uL (1.40-6.50); %Basophils 0.5 % (0.0-1.0); %Eosinophils 2.9 % (0.0-10.0); %Lymphocytes 16.8 % (21.0-51.0); %Monocytes 7.2 % (0.0-10.0); %Neutrophils 72.7 % (42.0-75.0); Hemoglobin 12.5 g/dL (12.0-16.0); Mean Corpuscular HGB CONC 34.1 g/dL (32.0-36.0); Mean Corpuscular Volume 93.8 fL (78.0-98.0); Mean Platelet Volume 7.5 fL (7.4-10.4); Platelet Count 327 thou/uL (130-400); RBC Distribution Width 13.5 % (11.5-14.5); Red Blood Cell (RBC) Count 3.91 mill/uL (4.20-5.40); White Blood Cell (WBC) Count 11.6 thou/uL (4.8-10.8)
[2021-10-19] MEDS ORDERED: Aspirin Chewable 81 MG TAB ONE (20:48)
[2021-10-19 20:49] LABS: ALT (SGPT) 15 U/L (8-55); AST (SGOT) 20 U/L (5-34); Albumin 4.2 g/dL (3.4-4.8); Alkaline Phosphatase 41 U/L (40-110); Anion Gap 16 mmol/L (10-20); BUN (Urea Nitrogen) 15 mg/dL (9.8-20.1); Bilirubin, Total 0.5 mg/dL (0.2-1.2); Calc. Creatinine Clearance 0 mL/min (70-130); Calcium 9.5 mg/dL (7.8-10.44); Carbon Dioxide 26 mmol/L (23-31); Chloride 103 mmol/L (98-107); Estimated GFR 51; Globulin 3.3 g/dL (2.4-3.5); Glucose 97 mg/dL (83-110); Protein, Total 7.5 g/dL (5.8-8.1); Sodium 141 mmol/L (136-145)
[2021-10-19 21:06] LABS: Bacteria/HPF None Seen HPF (None Seen); Bilirubin Negative (Negative); Blood, Urine Negative (Negative); Clarity Clear (Clear); Glucose, Urine (Dipstick) Normal (Negative); Ketone, Urine Negative (Negative); Leukocyte 25 Leu/uL (Negative); Nitrite Negative (Negative); Protein, Urine (Dipstick) Negative (Neg-Trace); RBC/HPF 0-3 HPF (0-3); Specific Gravity, Urine 1.007 (1.002-1.036); Squamous Epithelial 0-3 HPF (0-3); Urobilinogen Normal mg/dL (Less than 2)
[2021-10-20] MEDS ORDERED: Acetaminophen 325 MG TAB PO PRN (01:49)
[2021-10-20] MEDS ORDERED: Ondansetron ODT 4 MG TAB PO PRN (01:49)
[2021-10-20] MEDS ORDERED: Albuterol 200 PUFF (6.7GM INHALER) INH PRN (01:51)
[2021-10-20] MEDS ORDERED: Nitroglycerin 0.4 MG TAB (25 Tab Bottle) SL PRN (01:56)
[2021-10-20] MEDS ORDERED: Labetalol HCl 100 MG/20 ML VIAL SLOW IVP PRN (01:59)
[2021-10-20] MEDS ORDERED: Electrolyte Replacement Protocol 1 EACH FS SCH (02:00)
[2021-10-20] MEDS ORDERED: Electrolyte Replacement Protocol 1 EACH FS PRN (02:10)
[2021-10-20] MEDS ORDERED: Melatonin 3 MG TAB PO PRN (02:50)
[2021-10-20 03:12] VITALS: BMI 24.5
[2021-10-20 04:59] LABS: #Basophils 0.1 thou/uL (0.0-0.2); #Eosinphils 0.3 thou/uL (0.0-0.7); #Lymphocytes 1.9 thou/uL (1.20-3.40); #Monocytes 0.8 thou/uL (0.11-0.59); #Neutrophils 7.2 thou/uL (1.40-6.50); %Basophils 0.8 % (0.0-1.0); %Lymphocytes 18.7 % (21.0-51.0); %Monocytes 7.5 % (0.0-10.0); Hemoglobin 12.6 g/dL (12.0-16.0); Mean Corpuscular HGB CONC 32.9 g/dL (32.0-36.0); Mean Corpuscular Volume 94.5 fL (78.0-98.0); Mean Platelet Volume 7.3 fL (7.4-10.4); Platelet Count 309 thou/uL (130-400); RBC Distribution Width 13.5 % (11.5-14.5); Red Blood Cell (RBC) Count 4.05 mill/uL (4.20-5.40); White Blood Cell (WBC) Count 10.3 thou/uL (4.8-10.8)
[2021-10-20 05:20] LABS: Anion Gap 13 mmol/L (10-20); BUN (Urea Nitrogen) 13 mg/dL (9.8-20.1); Calc. Creatinine Clearance 40 mL/min (70-130); Carbon Dioxide 31 mmol/L (23-31); Chloride 101 mmol/L (98-107); Estimated GFR 48; Potassium 4.1 mmol/L (3.5-5.1); Sodium 141 mmol/L (136-145)
[2021-10-20 05:21] LABS: Calcium 9.7 mg/dL (7.8-10.44); Glucose 103 mg/dL (83-110)
[2021-10-20] MEDS ORDERED: Mometasone 200 MCG/Formoterol 5 MCG 120 PUFF INHALER INH SCH (06:30)
[2021-10-20 06:44] LABS: Amphetamine Not Detected (NotDetected); Barbiturates Screen Not Detected (NotDetected); Benzodiazepine Screen Not Detected (NotDetected); Cocaine Metabolite Screen Not Detected (NotDetected); Methadone Not Detected (NotDetected); Methamphetamine Not Detected (NotDetected); Opiate Screen Not Detected (NotDetected); Oxycodone Screen Not Detected (NotDetected); Phencyclidine (PCP) Not Detected (NotDetected); THC/Cannabinoid Screen Not Detected (NotDetected); Tricyclic Screen Not Detected (NotDetected)
[2021-10-20] MEDS ORDERED: Carvedilol 6.25 MG TAB PO SCH (08:00)
[2021-10-20] MEDS ORDERED: Magnesium 2 GM/50 ML(in water) 2 GM in Premix Bag 1 BAG IVPB SCH (08:00)
[2021-10-20] MEDS ORDERED: Enoxaparin Sodium 40 MG/0.4 ML SYRINGE SC SCH (09:00)
[2021-10-20] MEDS ORDERED: Furosemide 20 MG TAB PO SCH (09:00)
[2021-10-20] MEDS ORDERED: Allopurinol 100 MG TAB PO SCH (09:00)
[2021-10-20] MEDS ORDERED: Aspirin Chewable 81 MG TAB PO SCH (09:00)
[2021-10-20] MEDS ORDERED: Icosapent Ethyl 1 GM CAPSULE PO SCH (09:00)
[2021-10-20] MEDS ORDERED: Losartan 25 MG TAB PO SCH (09:00)
[2021-10-20] MEDS ORDERED: Iopamidol-370 76% 500 ML 1 ML ONE (09:10)
[2021-10-20] MEDS ORDERED: Sodium Chloride 0.9% 500 ML IV SCH (12:45)
[2021-10-20 15:59] VITALS: BP 150/67; TEMP 97.6
[2021-10-20] MEDS ORDERED: Melatonin 3 MG TAB PO SCH (21:00)
== END 2021-10-20 18:00 | disposition home or self-care (01) ==
LOC: ERS 19:51 → 2SW 10-20 00:53
PROVIDERS: ADMIT Internal Medicine; ATTEND Internal Medicine
DX: R07.9 Chest pain, unspecified (principal); I12.9 Hypertensive chronic kidney disease with stage 1 through stage 4 chronic kidney disease, or unspecified chronic kidney disease; N18.30 Chronic kidney disease, stage 3 unspecified; J44.9 Chronic obstructive pulmonary disease, unspecified; F17.290 Nicotine dependence, other tobacco product, uncomplicated; E78.00 Pure hypercholesterolemia, unspecified; Z86.16 Personal history of COVID-19; Z79.82 Long term (current) use of aspirin; Z79.899 Other long term (current) drug therapy; Z88.1 Allergy status to other antibiotic agents; Z88.8 Allergy status to other drugs, medicaments and biological substances; Z95.0 Presence of cardiac pacemaker; Z95.1 Presence of aortocoronary bypass graft; Z95.5 Presence of coronary angioplasty implant and graft
CPT/HCPCS: 36415; 70450; 71045; 71275; 80048; 80053; 80306; 81003; 81015; 83735; 84484; 85025; 85379; 93005; 96372; 96374; G0378; J1650; J3475; J7030; Q9967

== ENCOUNTER 2022-04-01 09:55 | Outpatient (CLI) | payer MEDICARE, OTHER | END 2022-04-01 09:56 | disposition home or self-care (01) | LOC: RAD 09:55 | PROVIDERS: ATTEND Internal Medicine Critical Care Medicine | DX: R06.00 Dyspnea, unspecified (principal) | CPT/HCPCS: 71046 ==

== ENCOUNTER 2022-10-08 19:23 | Inpatient (IN) | payer MEDICARE, OTHER ==
[2022-10-08] MEDS ORDERED: Nitroglycerin 2% Ointment 1 INCH/1 GM Packet ONE (19:45)
[2022-10-08] MEDS ORDERED: Aspirin Chewable 81 MG TAB ONE (19:45)
[2022-10-08] MEDS ORDERED: Nitroglycerin 0.4 MG TAB 1 EACH ONE ×2 (19:45→20:32)
[2022-10-08 19:58] LABS: #Basophils 0.1 thou/uL (0.0-0.2); #Eosinphils 0.2 thou/uL (0.0-0.7); #Monocytes 0.7 thou/uL (0.11-0.59); %Basophils 0.6 % (0.0-1.0); %Eosinophils 2.5 % (0.0-10.0); %Lymphocytes 13.3 % (21.0-51.0); %Monocytes 7.9 % (0.0-10.0); %Neutrophils 75.5 % (42.0-75.0); Hematocrit 35.2 % (36.0-47.0); Hemoglobin 11.4 g/dL (12.0-16.0); Mean Corpuscular HGB CONC 32.4 g/dL (32.0-36.0); Mean Corpuscular Volume 95.7 fl (78.0-98.0); Mean Platelet Volume 9.5 fL (7.4-10.4); Platelet Count 212 10x3/uL (130-400); RBC Distribution Width 14.7 % (11.5-14.5); Red Blood Cell (RBC) Count 3.68 mill/uL (4.20-5.40); White Blood Cell (WBC) Count 9.3 10x3/uL (4.8-10.8)
[2022-10-08 20:21] LABS: ALT (SGPT) 19 U/L (8-55); AST (SGOT) 25 U/L (5-34); Albumin 4.1 g/dL (3.4-4.8); Alkaline Phosphatase 46 U/L (40-110); Anion Gap 17 mmol/L (10-20); BUN (Urea Nitrogen) 21 mg/dL (9.8-20.1); Bilirubin, Total 0.4 mg/dL (0.2-1.2); Calc. Creatinine Clearance 0 mL/min (70-130); Calcium 9.6 mg/dL (7.8-10.44); Carbon Dioxide 23 mmol/L (23-31); Chloride 106 mmol/L (98-107); Estimated GFR 34; Globulin 3.7 g/dL (2.4-3.5); Glucose 136 mg/dL (83-110); Protein, Total 7.8 g/dL (5.8-8.1); Sodium 142 mmol/L (136-145)
[2022-10-08] MEDS ORDERED: ALPRAZolam 0.25 MG TAB PO PRN (22:32)
[2022-10-08] MEDS ORDERED: Evolocumab [Repatha Syringe] 140 MG/ML Syringe SC SCH (22:45)
[2022-10-08 22:59] VITALS: BMI 27.4
[2022-10-09 01:14] LABS: CKMB 2.4 ng/mL (0-6.6)
[2022-10-09 06:01] LABS: #Basophils 0.1 thou/uL (0.0-0.2); #Eosinphils 0.3 thou/uL (0.0-0.7); #Monocytes 0.7 thou/uL (0.11-0.59); #Neutrophils 4.7 thou/uL (1.40-6.50); %Eosinophils 3.8 % (0.0-10.0); %Lymphocytes 19.4 % (21.0-51.0); %Monocytes 9.8 % (0.0-10.0); %Neutrophils 65.7 % (42.0-75.0); Hematocrit 32.4 % (36.0-47.0); Hemoglobin 10.5 g/dL (12.0-16.0); Mean Corpuscular HGB CONC 32.4 g/dL (32.0-36.0); Mean Corpuscular Hemoglobin 31.4 pg (27.0-31.0); Mean Platelet Volume 9.6 fL (7.4-10.4); Platelet Count 185 10x3/uL (130-400); RBC Distribution Width 14.8 % (11.5-14.5); Red Blood Cell (RBC) Count 3.34 mill/uL (4.20-5.40); White Blood Cell (WBC) Count 7.1 10x3/uL (4.8-10.8)
[2022-10-09 06:27] LABS: ALT (SGPT) 14 U/L (8-55); AST (SGOT) 21 U/L (5-34); Albumin 3.3 g/dL (3.4-4.8); Alkaline Phosphatase 38 U/L (40-110); Anion Gap 13 mmol/L (10-20); BUN (Urea Nitrogen) 20 mg/dL (9.8-20.1); Bilirubin, Total 0.4 mg/dL (0.2-1.2); Calc. Creatinine Clearance 35 mL/min (70-130); Calcium 9.1 mg/dL (7.8-10.44); Carbon Dioxide 26 mmol/L (23-31); Chloride 107 mmol/L (98-107); Estimated GFR 36; Globulin 3.2 g/dL (2.4-3.5); Glucose 135 mg/dL (83-110); Potassium 4.5 mmol/L (3.5-5.1); Protein, Total 6.5 g/dL (5.8-8.1); Sodium 141 mmol/L (136-145)
[2022-10-09] MEDS ORDERED: Aspirin Chewable 81 MG TAB ONE (07:42)
[2022-10-09] MEDS: Losartan 25 MG TAB PO SCH (08:41)
[2022-10-09] MEDS: Aspirin Chewable 81 MG TAB PO SCH (08:41)
[2022-10-09] MEDS: Allopurinol 100 MG TAB PO SCH ×2 (08:41→21:30)
[2022-10-09] MEDS ORDERED: Furosemide 40 MG TAB PO SCH (09:00)
[2022-10-09] MEDS ORDERED: Furosemide 20 MG/2 ML VIAL SLOW IVP SCH (09:00)
[2022-10-09] MEDS: Mometasone 200 MCG/Formoterol 5 MCG 120 PUFF INHALER INH SCH ×2 (09:10→19:34)
[2022-10-09 09:14] LABS: Bacteria/HPF 2+ HPF (None Seen); Bilirubin Negative (Negative); Blood, Urine Negative (Negative); Clarity Clear (Clear); Glucose, Urine (Dipstick) Normal (Negative); Ketone, Urine Negative (Negative); Leukocyte 75 Leu/uL (Negative); Nitrite 1+ (Negative); Protein, Urine (Dipstick) Negative (Neg-Trace); RBC/HPF 0-3 HPF (0-3); Specific Gravity, Urine 1.015 (1.002-1.036); Urobilinogen Normal mg/dL (Less than 2); pH, Urine 6.5 (5.0-9.0)
[2022-10-09] MEDS ORDERED: Furosemide 40 MG TAB ONE (09:17)
[2022-10-09] MEDS ORDERED: Metoprolol Tartrate 50 MG TAB ONE (09:17)
[2022-10-09] MEDS: Metoprolol Tartrate 50 MG TAB PO SCH ×2 (09:25→21:30)
[2022-10-09] MEDS: Multivitamin W/ Minerals 1 TAB PO SCH (11:16)
[2022-10-09] MEDS ORDERED: Albuterol 200 PUFF (6.7GM INHALER) INH PRN ×2 (16:18)
[2022-10-09] MEDS ORDERED: LevoFLOXacin 500 MG TAB PO SCH (18:00)
[2022-10-09] MEDS ORDERED: Melatonin 3 MG TAB PO SCH ×2 (21:00→23:45)
[2022-10-09] MEDS ORDERED: Donepezil HCl 10 MG TAB PO SCH (21:00)
[2022-10-09] MEDS ORDERED: Aspirin 325 MG TAB PO SCH (21:00)
[2022-10-10 04:53] LABS: #Basophils 0.1 thou/uL (0.0-0.2); #Eosinphils 0.4 thou/uL (0.0-0.7); #Monocytes 0.7 thou/uL (0.11-0.59); #Neutrophils 4.8 thou/uL (1.40-6.50); %Basophils 0.9 % (0.0-1.0); %Eosinophils 4.9 % (0.0-10.0); %Lymphocytes 19.1 % (21.0-51.0); %Neutrophils 65.7 % (42.0-75.0); Hematocrit 32.9 % (36.0-47.0); Hemoglobin 10.5 g/dL (12.0-16.0); Mean Corpuscular HGB CONC 31.9 g/dL (32.0-36.0); Mean Corpuscular Hemoglobin 30.6 pg (27.0-31.0); Mean Corpuscular Volume 95.9 fl (78.0-98.0); Mean Platelet Volume 9.3 fL (7.4-10.4); Platelet Count 190 10x3/uL (130-400); RBC Distribution Width 14.6 % (11.5-14.5); Red Blood Cell (RBC) Count 3.43 mill/uL (4.20-5.40); White Blood Cell (WBC) Count 7.4 10x3/uL (4.8-10.8)
[2022-10-10 05:16] LABS: ALT (SGPT) 15 U/L (8-55); AST (SGOT) 23 U/L (5-34); Albumin 3.5 g/dL (3.4-4.8); Alkaline Phosphatase 39 U/L (40-110); Anion Gap 14 mmol/L (10-20); BUN (Urea Nitrogen) 24 mg/dL (9.8-20.1); Bilirubin, Total 0.3 mg/dL (0.2-1.2); Calc. Creatinine Clearance 26 mL/min (70-130); Calcium 9.1 mg/dL (7.8-10.44); Carbon Dioxide 26 mmol/L (23-31); Chloride 102 mmol/L (98-107); Estimated GFR 26; Globulin 3.2 g/dL (2.4-3.5); Glucose 156 mg/dL (83-110); Potassium 4.2 mmol/L (3.5-5.1); Protein, Total 6.7 g/dL (5.8-8.1); Sodium 138 mmol/L (136-145)
[2022-10-10] MEDS ORDERED: LevoFLOXacin 500 MG TAB PO SCH (06:00)
[2022-10-10] MEDS: Mometasone 200 MCG/Formoterol 5 MCG 120 PUFF INHALER INH SCH ×2 (06:34→06:35)
[2022-10-10 07:16] VITALS: BP 142/65; TEMP 97.9
[2022-10-10] MEDS ORDERED: Furosemide 40 MG TAB PO SCH (07:30)
[2022-10-10] MEDS: Aspirin Chewable 81 MG TAB PO SCH (07:44)
[2022-10-10] MEDS: Multivitamin W/ Minerals 1 TAB PO SCH (07:44)
[2022-10-10] MEDS: Allopurinol 100 MG TAB PO SCH (07:44)
[2022-10-10] MEDS: Losartan 25 MG TAB PO SCH (07:45)
[2022-10-10] MEDS: Metoprolol Tartrate 50 MG TAB PO SCH (07:45)
[2022-10-10] MEDS ORDERED: Cholecalciferol 1,000 UNITS (25 MCG) TAB PO SCH (09:00)
== END 2022-10-10 12:31 | disposition home or self-care (01) | DRG 309 ==
LOC: ERS 19:23 → ERHOLD 20:59 → OBSVTOIN 10-09 13:12 → 2SW 10-09 14:56
PROVIDERS: ADMIT Internal Medicine Nephrology; ATTEND Family Medicine
DX: I48.0 Paroxysmal atrial fibrillation (principal); N17.9 Acute kidney failure, unspecified; N18.4 Chronic kidney disease, stage 4 (severe); N39.0 Urinary tract infection, site not specified; I16.0 Hypertensive urgency; J44.9 Chronic obstructive pulmonary disease, unspecified; I25.10 Atherosclerotic heart disease of native coronary artery without angina pectoris; E78.00 Pure hypercholesterolemia, unspecified; F17.290 Nicotine dependence, other tobacco product, uncomplicated; I12.9 Hypertensive chronic kidney disease with stage 1 through stage 4 chronic kidney disease, or unspecified chronic kidney disease; Z95.1 Presence of aortocoronary bypass graft; Z79.899 Other long term (current) drug therapy; Z79.82 Long term (current) use of aspirin; Z82.49 Family history of ischemic heart disease and other diseases of the circulatory system; Z88.8 Allergy status to other drugs, medicaments and biological substances
CPT/HCPCS: 36415; 71045; 80053; 81001; 82553; 83880; 84484; 85025; 93005; J1650

== ENCOUNTER 2023-01-05 15:04 | Outpatient (CLI) | payer MEDICARE, OTHER | END 2023-01-05 15:05 | disposition home or self-care (01) | LOC: RAD 15:04 | PROVIDERS: ATTEND Internal Medicine Critical Care Medicine | DX: R06.00 Dyspnea, unspecified (principal) | CPT/HCPCS: 71046 ==

== ENCOUNTER 2023-03-21 21:12 | Observation (INO) | payer MEDICARE, OTHER ==
[2023-03-21 21:45] VITALS: BMI 26.8
[2023-03-21] MEDS ORDERED: Nitroglycerin 0.4 MG TAB (25 Tab Bottle) SL PRN (23:18)
[2023-03-21] MEDS ORDERED: Ondansetron PF 4 MG/2 ML Vial IVP PRN (23:18)
[2023-03-21] MEDS ORDERED: Acetaminophen 325 MG TAB PO PRN (23:18)
[2023-03-21] MEDS ORDERED: Ondansetron ODT 4 MG TAB PO PRN (23:18)
[2023-03-21] MEDS ORDERED: Aspirin Chewable 81 MG TAB PO SCH (23:45)
[2023-03-22] MEDS ORDERED: Melatonin 3 MG TAB PO PRN (00:19)
[2023-03-22 04:25] LABS: #Basophils 0.1 thou/uL (0.0-0.2); #Eosinphils 0.4 thou/uL (0.0-0.7); #Monocytes 0.7 thou/uL (0.11-0.59); #Neutrophils 5.8 thou/uL (1.40-6.50); %Basophils 0.7 % (0.0-1.0); %Eosinophils 4.6 % (0.0-10.0); %Lymphocytes 20.9 % (21.0-51.0); %Monocytes 8.2 % (0.0-10.0); %Neutrophils 65.3 % (42.0-75.0); Hematocrit 31.5 % (36.0-47.0); Hemoglobin 10.1 g/dL (12.0-16.0); Mean Corpuscular HGB CONC 32.1 g/dL (32.0-36.0); Mean Corpuscular Hemoglobin 30.7 pg (27.0-31.0); Mean Corpuscular Volume 95.7 fl (78.0-98.0); Mean Platelet Volume 10.1 fL (7.4-10.4); Platelet Count 178 10x3/uL (130-400); Red Blood Cell (RBC) Count 3.29 mill/uL (4.20-5.40); White Blood Cell (WBC) Count 8.9 10x3/uL (4.8-10.8)
[2023-03-22 04:58] LABS: Hemoglobin A1c 6.6 % (4.0-6.0)
[2023-03-22 04:58] LABS: Anion Gap 14 mmol/L (10-20); BUN (Urea Nitrogen) 20 mg/dL (9.8-20.1); Calc. Creatinine Clearance 32 mL/min (70-130); Calcium 8.7 mg/dL (7.8-10.44); Carbon Dioxide 25 mmol/L (23-31); Cardiac Risk 2.7 (Less than 4.5); Chloride 107 mmol/L (98-107); Cholesterol 82 mg/dl (< 200 Desired); Estimated GFR 32; Glucose 127 mg/dL (83-110); HDL Cholesterol 30 mg/dL (>60 Neg Risk); LDL Cholesterol, Calculated 3 mg/dL; Potassium 3.8 mmol/L (3.5-5.1); Sodium 142 mmol/L (136-145); Triglycerides 243 mg/dL (Less than 150)
[2023-03-22] MEDS ORDERED: Furosemide 20 MG TAB PO SCH (09:00)
[2023-03-22] MEDS ORDERED: Aspirin Chewable 81 MG TAB PO SCH (09:00)
[2023-03-22] MEDS ORDERED: FLU VACC QS2023(65UP)/MF59C/PF 60 MCG/0.5 ML SYRINGE IM ONE (09:00)
[2023-03-22] MEDS ORDERED: Losartan 25 MG TAB PO SCH (09:00)
[2023-03-22] MEDS: Zinc Sulfate 220 MG CAP PO SCH (09:07)
[2023-03-22] MEDS: Allopurinol 100 MG TAB PO SCH ×2 (09:08→20:39)
[2023-03-22] MEDS ORDERED: Regadenoson 0.4 MG/5 ML SYRINGE ONE (10:50)
[2023-03-22] MEDS: Mometasone 200 MCG/Formoterol 5 MCG 120 PUFF INHALER INH SCH (18:48)
[2023-03-22] MEDS: Memantine 10 MG TAB PO SCH (20:41)
[2023-03-22] MEDS ORDERED: Metoprolol Tartrate 50 MG TAB PO SCH (21:00)
[2023-03-22] MEDS ORDERED: Aspirin 325 MG TAB PO SCH (21:00)
[2023-03-22] MEDS ORDERED: Melatonin 3 MG TAB PO SCH (21:00)
[2023-03-22] MEDS ORDERED: Donepezil HCl 10 MG TAB PO SCH (21:00)
[2023-03-23 04:53] LABS: #Basophils 0.1 thou/uL (0.0-0.2); #Eosinphils 0.4 thou/uL (0.0-0.7); #Monocytes 0.5 thou/uL (0.11-0.59); #Neutrophils 5.2 thou/uL (1.40-6.50); %Basophils 0.9 % (0.0-1.0); %Eosinophils 5.2 % (0.0-10.0); %Lymphocytes 20.5 % (21.0-51.0); %Monocytes 6.9 % (0.0-10.0); Hematocrit 33.7 % (36.0-47.0); Hemoglobin 10.8 g/dL (12.0-16.0); Mean Corpuscular Hemoglobin 30.9 pg (27.0-31.0); Mean Corpuscular Volume 96.6 fl (78.0-98.0); Platelet Count 191 10x3/uL (130-400); RBC Distribution Width 15.1 % (11.5-14.5); Red Blood Cell (RBC) Count 3.49 mill/uL (4.20-5.40); White Blood Cell (WBC) Count 7.9 10x3/uL (4.8-10.8)
[2023-03-23 05:18] LABS: Anion Gap 15 mmol/L (10-20); BUN (Urea Nitrogen) 23 mg/dL (9.8-20.1); Calc. Creatinine Clearance 26 mL/min (70-130); Calcium 8.8 mg/dL (7.8-10.44); Carbon Dioxide 25 mmol/L (23-31); Chloride 104 mmol/L (98-107); Estimated GFR 25; Glucose 149 mg/dL (83-110); Magnesium 1.9 mg/dL (1.6-2.6); Potassium 4.2 mmol/L (3.5-5.1); Sodium 140 mmol/L (136-145)
[2023-03-23 05:22] LABS: Troponin I 0.036 ng/mL (< 0.028)
[2023-03-23] MEDS: Mometasone 200 MCG/Formoterol 5 MCG 120 PUFF INHALER INH SCH (08:08)
[2023-03-23] MEDS: Memantine 10 MG TAB PO SCH (09:01)
[2023-03-23] MEDS: Zinc Sulfate 220 MG CAP PO SCH (09:02)
[2023-03-23] MEDS: Allopurinol 100 MG TAB PO SCH (09:02)
[2023-03-23] MEDS ORDERED: Carvedilol 6.25 MG TAB PO SCH (17:00)
[2023-03-23 18:15] VITALS: BP 167/74; TEMP 97.9
== END 2023-03-23 19:20 | disposition home or self-care (01) ==
LOC: 2SW 21:22
PROVIDERS: ADMIT Student in an Organized Health Care Education/Training Program; ATTEND Hospitalist
DX: I25.10 Atherosclerotic heart disease of native coronary artery without angina pectoris (principal); J44.9 Chronic obstructive pulmonary disease, unspecified; I13.0 Hypertensive heart and chronic kidney disease with heart failure and stage 1 through stage 4 chronic kidney disease, or unspecified chronic kidney disease; E78.5 Hyperlipidemia, unspecified; I50.30 Unspecified diastolic (congestive) heart failure; E11.22 Type 2 diabetes mellitus with diabetic chronic kidney disease; N18.32 Chronic kidney disease, stage 3b; F17.200 Nicotine dependence, unspecified, uncomplicated; Z88.8 Allergy status to other drugs, medicaments and biological substances; Z79.82 Long term (current) use of aspirin; Z79.899 Other long term (current) drug therapy; Z98.890 Other specified postprocedural states; Z95.5 Presence of coronary angioplasty implant and graft
CPT/HCPCS: 71045; 78452; 80048 ×2; 80061; 83036; 83735; 84484; 85025 ×2; 85379; 93017; 93970; 94640 ×2; 94664; A9502; G0378 ×3; J2785; 36415; 36416

== ENCOUNTER 2023-11-15 12:10 | Emergency (ER) | payer MEDICARE, OTHER ==
[~2023-11-15 12:10] MED LIST: Iopamidol-370 76% 500 ML MDV (1 ML CHARGE) ONE
[2023-11-15 14:17] LABS: #Basophils 0.03 10x3/uL (0.0-0.2); %Basophils 0.2 % (0.0-1.0); %Eosinophils 0.3 % (0.0-10.0); %Lymphocytes 6.9 % (21.0-51.0); %Monocytes 6.7 % (0.0-10.0); %Neutrophils 85.5 % (42.0-75.0); Hematocrit 36.6 % (36.0-47.0); Mean Corpuscular HGB CONC 32.8 g/dL (32.0-36.0); Mean Corpuscular Hemoglobin 30.8 pg (27.0-31.0); Mean Corpuscular Volume 93.8 fL (78.0-98.0); Mean Platelet Volume 9.6 fL (7.4-10.4); Platelet Count 222 10x3/uL (130-400)
[2023-11-15 14:32] LABS: ALT (SGPT) 12 U/L (8-55); AST (SGOT) 20 U/L (5-34); Albumin 3.5 g/dL (3.4-4.8); Alkaline Phosphatase 37 U/L (40-110); Anion Gap 15 mmol/L (10-20); BUN (Urea Nitrogen) 19 mg/dL (9.8-20.1); Bilirubin, Total 0.9 mg/dL (0.2-1.2); Calc. Creatinine Clearance 0 mL/min (70-130); Calcium 9.6 mg/dL (7.8-10.44); Carbon Dioxide 24 mmol/L (23-31); Chloride 104 mmol/L (98-107); Estimated GFR 34; Globulin 4.3 g/dL (2.4-3.5); Glucose 110 mg/dL (83-110); Lipase 31 U/L (8-78); Protein, Total 7.8 g/dL (5.8-8.1); Sodium 139 mmol/L (136-145)
[2023-11-15 14:46] LABS: Bacteria/HPF 4+ HPF (None Seen); Bilirubin Negative (Negative); Blood, Urine Negative (Negative); CAUTI Indications for Culture Dysuria,urgency,freq; Clarity Turbid (Clear); Glucose, Urine (Dipstick) Normal (Negative); Ketone, Urine Negative (Negative); Leukocyte 250 Leu/uL (Negative); Nitrite 2+ (Negative); Protein, Urine (Dipstick) 50 mg/dL (Neg-Trace); RBC/HPF 0-3 HPF (0-3); Specific Gravity, Urine 1.022 (1.002-1.036); Squamous Epithelial 0-3 HPF (0-3); Urobilinogen Normal mg/dL (Less than 2); WBC/HPF 21-50 HPF (0-3); pH, Urine 5.5 (5.0-9.0)
[2023-11-15 14:48] LABS: Urine Culture Reflex Yes Yes
[2023-11-15] MEDS ORDERED: Dicyclomine 20 MG TAB ONE (17:46)
[2023-11-15] MEDS ORDERED: LevoFLOXacin 250 MG TAB ONE (17:46)
[2023-11-15] MEDS ORDERED: LevoFLOXacin 500 MG TAB ONE (17:46)
[2023-11-15] MEDS ORDERED: Morphine 4 MG/ML VIAL ONE (17:46)
[2023-11-15] MEDS ORDERED: Ondansetron PF 4 MG/2 ML Vial ONE (17:47)
== END 2023-11-15 19:32 | disposition home or self-care (01) ==
LOC: ERS 12:10
DX: N39.0 Urinary tract infection, site not specified (principal); K63.89 Other specified diseases of intestine; I25.10 Atherosclerotic heart disease of native coronary artery without angina pectoris; I10 Essential (primary) hypertension; J44.9 Chronic obstructive pulmonary disease, unspecified; F17.290 Nicotine dependence, other tobacco product, uncomplicated; Z95.0 Presence of cardiac pacemaker
CPT/HCPCS: 74177; 80053; 81001; 83690; 85025; 87077; 87086; J2272; J2405; 87186; 96374; 96375; Q9967

== ENCOUNTER 2024-01-19 11:49 | Outpatient (CLI) | payer MEDICARE, OTHER | END 2024-01-19 11:50 | disposition home or self-care (01) | LOC: RAD 11:49 | PROVIDERS: ATTEND Nurse Practitioner Family | DX: R07.89 Other chest pain (principal) | CPT/HCPCS: 71046 ==

== ENCOUNTER 2024-11-29 23:55 | Inpatient (IN) | payer MEDICARE, OTHER ==
[2024-11-30 01:05] VITALS: BMI 25.4
[2024-11-30] MEDS ORDERED: Senokot S 8.6-50 MG TAB PO PRN (02:09)
[2024-11-30] MEDS ORDERED: Dextrose 50% Abboject 50 ML SYRINGE SLOW IVP PRN (02:09)
[2024-11-30] MEDS ORDERED: Glucagon 1 MG/ML KIT IM PRN (02:09)
[2024-11-30] MEDS ORDERED: Calcium Carbonate 500 MG ChewTAB PO PRN (02:09)
[2024-11-30] MEDS ORDERED: Electrolyte Replacement Protocol 1 EACH FS SCH (02:15)
[2024-11-30 05:13] LABS: #Basophils 0.06 10x3/uL (0.0-0.2); #Eosinophils 0.17 10x3/uL (0.0-0.7); #Monocytes 0.71 10x3/uL (0.11-0.59); #Neutrophils 5.51 10x3/uL (1.40-6.50); %Basophils 0.7 % (0.0-1.0); %Eosinophils 2.1 % (0.0-10.0); %Lymphocytes 21.4 % (21.0-51.0); %Monocytes 8.6 % (0.0-10.0); %Neutrophils 67.0 % (42.0-75.0); Hematocrit 37.3 % (36.0-47.0); Hemoglobin 11.9 g/dL (12.0-16.0); Mean Corpuscular Hemoglobin 29.8 pg (27.0-31.0); Mean Corpuscular Volume 93.3 fL (78.0-98.0); Platelet Count 187 10x3/uL (130-400); Red Blood Cell (RBC) Count 4.00 mill/uL (4.20-5.40); White Blood Cell (WBC) Count 8.23 10x3/uL (4.8-10.8)
[2024-11-30 05:28] LABS: Anion Gap 14 mmol/L (10-20); BUN (Urea Nitrogen) 25 mg/dL (9.8-20.1); Calc. Creatinine Clearance 24 mL/min (70-130); Calcium 8.9 mg/dL (7.8-10.44); Carbon Dioxide 27 mmol/L (23-31); Cardiac Risk 3.8 (Less than 4.5); Chloride 105 mmol/L (98-107); Cholesterol 111 mg/dl (< 200 Desired); Glucose 155 mg/dL (83-110); HDL Cholesterol 29 mg/dL (>60 Neg Risk); LDL Cholesterol, Calculated 31 mg/dL; Potassium 4.1 mmol/L (3.5-5.1); Sodium 142 mmol/L (136-145); Triglycerides 256 mg/dL (Less than 150)
[2024-11-30] MEDS: Mometasone 200 MCG/Formoterol 5 MCG 120 PUFF INHALER INH SCH (06:31)
[2024-11-30] MEDS: Dapagliflozin Propanediol 10 MG TAB PO SCH (08:35)
[2024-11-30] MEDS: Allopurinol 100 MG TAB PO SCH (08:35)
[2024-11-30] MEDS: Aspirin 325 MG TAB PO SCH (08:35)
[2024-11-30] MEDS: Enoxaparin 80 MG (0.8 mL) SYRINGE SC SCH (08:35)
[2024-11-30] MEDS: Furosemide 20 MG TAB PO SCH (08:35)
[2024-11-30] MEDS: Famotidine 20 MG TAB PO SCH (08:35)
[2024-11-30] MEDS: Melatonin 3 MG TAB PO PRN (20:28)
[2024-12-01 05:37] LABS: Anion Gap 14 mmol/L (10-20); BUN (Urea Nitrogen) 24 mg/dL (9.8-20.1); Calc. Creatinine Clearance 23 mL/min (70-130); Calcium 9.2 mg/dL (7.8-10.44); Carbon Dioxide 27 mmol/L (23-31); Chloride 105 mmol/L (98-107); Glucose 125 mg/dL (83-110); Potassium 4.5 mmol/L (3.5-5.1); Sodium 141 mmol/L (136-145)
[2024-12-01] MEDS ORDERED: Enoxaparin 80 MG (0.8 mL) SYRINGE SC SCH (09:00)
[2024-12-01] MEDS: Famotidine 20 MG TAB PO SCH (09:06)
[2024-12-01] MEDS: Acetaminophen 325 MG TAB PO PRN (14:59)
[2024-12-02 04:26] VITALS: TEMP 97.8
[2024-12-02 11:24] VITALS: BP 139/65
== END 2024-12-02 11:31 | disposition home or self-care (01) | DRG 281 ==
LOC: UNDOADMOB 11-30 00:55 → INTOOBSV 11-30 00:55 → 2NO 11-30 00:55 → OBSVTOIN 11-30 00:55
PROVIDERS: ADMIT Internal Medicine; ATTEND Hospitalist
DX: R07.9 Chest pain, unspecified (principal); I13.0 Hypertensive heart and chronic kidney disease with heart failure and stage 1 through stage 4 chronic kidney disease, or unspecified chronic kidney disease; I21.4 Non-ST elevation (NSTEMI) myocardial infarction; I50.32 Chronic diastolic (congestive) heart failure; N18.4 Chronic kidney disease, stage 4 (severe); I25.110 Atherosclerotic heart disease of native coronary artery with unstable angina pectoris; Z88.8 Allergy status to other drugs, medicaments and biological substances; E78.5 Hyperlipidemia, unspecified; Z98.890 Other specified postprocedural states; Z95.1 Presence of aortocoronary bypass graft; M10.9 Gout, unspecified; F03.90 Unspecified dementia, unspecified severity, without behavioral disturbance, psychotic disturbance, mood disturbance, and anxiety; J44.9 Chronic obstructive pulmonary disease, unspecified; Z95.0 Presence of cardiac pacemaker; Z79.899 Other long term (current) drug therapy; E11.9 Type 2 diabetes mellitus without complications; F41.9 Anxiety disorder, unspecified
CPT/HCPCS: 36415; 36416; 78452; 80048; 80061; 83036; 84443; 85025; 85379; 93017; 93306; 94640; 94664; A9502; J1650; J1815; J2785; Q0162

== ENCOUNTER 2025-02-22 10:01 | Outpatient (CLI) | payer MEDICARE, OTHER | END 2025-02-22 10:02 | disposition home or self-care (01) | LOC: RAD 10:01 | PROVIDERS: ATTEND Internal Medicine Critical Care Medicine | DX: R06.00 Dyspnea, unspecified (principal) | CPT/HCPCS: 71046 ==